=== PATIENT | female | born 1985 | race Caucasian/White ===

== ENCOUNTER 2020-11-03 06:48 | Inpatient (IN) ==
[2020-11-03] MEDS ORDERED: Naloxone 0.4 MG/ML INJ IVP PRN (09:41)
[2020-11-03] MEDS ORDERED: Metoclopramide 10 MG/2 ML VIAL IVP PRN (09:41)
[2020-11-03] MEDS ORDERED: Penicillin G Potassium 5,000,000 UNIT in 0.9 % Sodium Chloride Mini Bag 100 ML IVPB ONE (09:41)
[2020-11-03] MEDS ORDERED: *HR* Nalbuphine 10 MG/ML AMPUL IV PRN (09:41)
[2020-11-03] MEDS ORDERED: Ondansetron 4 MG/2 ML VIAL IVP PRN (09:41)
[2020-11-03] MEDS ORDERED: Famotidine 20 MG/2 ML VIAL IVP PRN (09:41)
[2020-11-03] MEDS ORDERED: Lidocaine 1% 20 ML MDV INFILT PRN (09:41)
[2020-11-03 10:26] LABS: Basophils # 0.1 K/mcL (0.0-0.2); Basophils % 0.5 %; Eosinophils # 0.1 K/mcL (0.0-0.6); Eosinophils % 0.8 %; Hematocrit 34.9 % (35.3-44.9); Hemoglobin 11.2 g/dL (11.5-15.4); Immature Granulocytes % 1.8 % (0-4); Lymphocytes # 1.4 K/mcL (0.6-4.6); Lymphocytes % 12.9 %; Mean Corpuscular HGB Conc 32.1 g/dL (31.6-35.5); Mean Corpuscular Hemoglobin 26.5 pg (28.0-33.3); Mean Corpuscular Volume 82.7 fL (83.0-100.0); Mean Platelet Volume 10.5 fL (9.4-12.4); Monocytes # 0.7 K/mcL (0.0-1.3); Neutrophils # 8.4 K/mcL (1.6-8.9); Platelet Count 297 K/mcL (140-400); Red Blood Count 4.22 M/mcL (3.82-4.97); Red Cell Distribution Width 14.9 % (11.5-14.5); White Blood Count 10.8 K/mcL (4.3-11.1)
[2020-11-03 10:35] LABS: Amphetamine Screen,Urine Negative ng/mL (Cutoff=1000); Barbiturate Screen,Urine Negative ng/mL (Cutoff=200); Benzodiazepines Screen,Urine Negative ng/mL (Cutoff=200); Cannabinoid Screen,Urine Negative ng/mL (Cutoff = 50); Cocaine Screen,Urine Negative ng/mL (Cutoff= 300); Opiate Screen,Urine Negative ng/mL (Cutoff=300); Phencyclidine Screen,Urine Negative ng/mL (Cutoff=25)
[2020-11-03] MEDS: Ringers Solution, Lactated 1,000 ML IVC SCH ×2 (10:51→13:55)
[2020-11-03] MEDS ORDERED: Penicillin G Potassium 2,500,000 UNIT/105 ML MLS IVPB SCH (12:00)
[2020-11-03] MEDS ORDERED: Oxytocin 20 units/ LR 1000 mL 20 UNIT/1,000 ML BAG IVC ONE (13:46)
[2020-11-03] MEDS ORDERED: Oxytocin 20 units/ LR 1000 mL 20 UNIT/1,000 ML BAG IVC SCH ×2 (14:45→19:00)
[2020-11-03] MEDS ORDERED: Ibuprofen 600 MG TABLET PO PRN (18:08)
[2020-11-03] MEDS ORDERED: Benzocaine/Menthol 56 GM AEROSOL SPRAY TP PRN ×2 (18:08→18:57)
[2020-11-03] MEDS: Acetaminophen 325 MG TABLET PO PRN (20:41)
[2020-11-04] MEDS: Ibuprofen 600 MG TABLET PO PRN ×3 (00:12→14:57)
[2020-11-04] MEDS: Acetaminophen 325 MG TABLET PO PRN ×3 (04:23→17:45)
[2020-11-04 07:50] VITALS: BP 104/63
[2020-11-04] MEDS: Lanolin 7 G OINT...G. TP PRN ×2 (08:00→17:37)
[2020-11-04] MEDS ORDERED: Prenatal Vit/FA 1 EACH TABLET PO SCH (09:00)
== END 2020-11-04 17:30 | disposition home or self-care (01) | DRG 807 ==
LOC: 1NENULAB 06:48 → 1NENUOBS 16:53
PROVIDERS: ADMIT Obstetrics & Gynecology; ATTEND Obstetrics & Gynecology